=== PATIENT | male | born 1955 | race Caucasian/White ===

== ENCOUNTER 2016-06-12 12:30 | Day surgery (SDC) | payer MEDICARE, OTHER ==
--- NOTE | ~2016-06-12 | OP ---
Record Of Operation [facility] [address] [place]. [address] NAME: JOSE PULLIAM : 51 STATUS : [facility]#: [id number] AGE: 60 ADM/REG DATE : 06/12/16 MR#: [id number] REPORT SERV DATE: 06/13/16 DICTATED BY: FRANSICO MCKENNA JR. DATE: 06/12/16 REPORT STATUS : Draft TRANSCRIBED BY: TAY DATE: 06/12/16 DATE OF PROCEDURE: 06/12/2016 NAME OF OPERATION: Excision of tumor of right neck and right groin. PREOPERATIVE DIAGNOSIS: Neurovascular tumors, also known as von Recklinghausen's disease. The tumor in the right neck and the right groin had been bleeding and that is the reason for excision. The patient has also multiple other tumors, one in the chest, which is infected and the one in the left groin that is also draining and infected. The patient was told that surgery could not be done as the lesion is infected. DESCRIPTION OF THE PROCEDURE: The patient was brought to the operating room, placed in the supine position. He was given general anesthesia, and after satisfactory level of anesthesia has been obtained, the tumor on the right neck and the right groin was prepared and draped in the usual manner. Starting on the neck, the base of the tumor was infiltrated with 0.5% Marcaine with epinephrine. After the effect of the epinephrine was noted, the lesion was completely excised and the base of the excision was inspected for bleeders. Multiple bleeders were electrocauterized. The lower side was controlled by suture ligature using 3-0 chromic catgut. After satisfactory hemostasis, the defect was closed meticulously with [id number] sutures using 3-0 Prolene sutures. The lesion in the right groin lateral to the base of the penile shaft was then excised and again the bleeders electrocauterized. Closure was accomplished with interrupted 4-0 Prolene sutures. The operation ended after applying 4 x 4 dressings, and the patient was brought to recovery room in satisfactory condition. SHANTE/TAY Fransico Mckenna Jr., M.D. / [id number] CC: Ruperto Hidalgo Jr., M.D.
[~2016-06-12 12:30] MED LIST: ALEVE220 MG PO; GLUCPH PO; NEUR300 PO; PROAIR HFA INH
[2016-06-12 13:14] LABS: HEMATOCRIT 42.1 % (40.0-51.0); HEMOGLOBIN 14.5 g/dL (13.6-17.8)
[2016-06-12 13:31] LABS: BUN (BLOOD UREA NITROGEN) 12 MG/DL (6-23); CALCIUM, SERUM 9.4 MG/DL (8.5-10.4); CHLORIDE, SERUM 103 MMOL/L (96-112); CO2 (CARBON DIOXIDE) 30 MMOL/L (24-34); CREATININE 1.32 MG/DL (0.70-1.30); GFR AFRICAN AMERICAN 67 ML/MIN (>=60); GFR NON AFRICAN AMERICAN 57 ML/MIN (>=60); GLUCOSE, SERUM 93 MG/DL (60-99); POTASSIUM, SERUM 4.3 MMOL/L (3.5-5.3); SODIUM, SERUM 142 MMOL/L (135-148)
[2017-02-10] MEDS ORDERED: ZANTAC 75 PO (15:40)
== END 2016-06-12 17:49 | disposition home or self-care (01) ==
LOC: SDC 12:30
PROC: 0WB60ZZ Excision of Neck, Open Approach (ICD-10-PCS; 2016-06-12)
PROC: 0YB50ZZ Excision of Right Inguinal Region, Open Approach (ICD-10-PCS; principal; 2016-06-12 13:45)
DX: D23.4 Other benign neoplasm of skin of scalp and neck (principal); D23.5 Other benign neoplasm of skin of trunk; J45.909 Unspecified asthma, uncomplicated; Z87.891 Personal history of nicotine dependence; Q85.00 Neurofibromatosis, unspecified; J44.9 Chronic obstructive pulmonary disease, unspecified; K22.70 Barrett's esophagus without dysplasia; K21.9 Gastro-esophageal reflux disease without esophagitis; K44.9 Diaphragmatic hernia without obstruction or gangrene; K76.0 Fatty (change of) liver, not elsewhere classified
CPT/HCPCS: 80048; 82962; 85014; 85018; 88305; 93005; A9270-GY; J0690; J1170; J2250; J2370; J2405; J2710; J3010